=== PATIENT | female | born 1985 | race Caucasian/White ===

== ENCOUNTER 2023-04-03 08:58 | Emergency (ER) | payer MEDICAID ==
[2023-04-03] MEDS ORDERED: cefTRIAXone 500 MG Vial IM ONE (09:40)
[2023-04-05 17:10] LABS: CHLAMYDIA TRACHOMATIS, NAA Negative (Negative); NEISSERIA GONORRHOEAE, NAA Positive (Negative)
== END 2023-04-03 10:15 | disposition home or self-care (01) ==
LOC: FB.ED 08:58
DX: Z20.2 Contact with and (suspected) exposure to infections with a predominantly sexual mode of transmission (principal); Z88.8 Allergy status to other drugs, medicaments and biological substances; Z79.899 Other long term (current) drug therapy
CPT/HCPCS: 87491; 87591; 96372; 99283; J0696